=== PATIENT | male | born 1960 | race Caucasian/White ===

== ENCOUNTER 2017-09-09 12:36 | Emergency (ER) | payer SELFPAY ==
--- NOTE | 2017-09-09 13:13 | EDM.PDOC ---
ED HPI GENERAL MEDICAL PROBLEM - General Chief Complaint: Lower Extremity Injury/Pain Stated Complaint: INJURED RT FOOT Time Seen by Provider: 09/09/17 12:58 Source of Information: Reports: Patient History Limitations: Reports: No Limitations - History of Present Illness INITIAL COMMENTS - FREE TEXT/NARRATIVE: HISTORY AND PHYSICAL: History of present illness: [Patient comes to the emergency room complaining of right foot pain. States that yesterday afternoon he stepped out of his pickup with his right foot landing in a rat-tooth causing his foot to roll and pain. This occurred yesterday afternoon. He thought his symptoms may improve throughout the evening and he took one Aleve. Symptoms worsened overnight and into [facility] emergency room for evaluation of these complaints denies any medical history. Does not take any medications regularly. No previous surgery injury or trauma to affected area. He has no other complaints or concerns at this time.] Review of systems: As per history of present illness and below otherwise all systems reviewed and negative. Past medical history: As per history of present illness and as reviewed below otherwise noncontributory. Surgical history: As per history of present illness and as reviewed below otherwise noncontributory. Social history: No reported history of drug or alcohol abuse. Family history: As per history of present illness and as reviewed below otherwise noncontributory. Physical exam: HEENT: Atraumatic, normocephalic. Extremities: Dorsum of right foot is swollen and ecchymotic, and tender with palpation just proximal 3rd-5th toes. No pain with palpation over right ankle or lower leg. Atraumatic, negative for cords or calf pain. Neurovascular unremarkable. Neuro: Awake, alert, oriented. Cranial nerves II through XII unremarkable. Cerebellum unremarkable. Motor and sensory unremarkable throughout. Exam nonfocal. Diagnostics: [Right foot x-ray] Impression: [Right foot pain] Plan: [Discussed with patient that his foot x-ray shows no fracture or abnormality. Will treat as a muscle strain at this point. Recommend [id number] analgesics, rest, ice, elevation. Referral is given to local PCP to follow-up if he is worsening or failing to improve. Strict return precautions are reviewed with the patient. In agreement with today's plan. All questions are answered and concerns are addressed.] Definitive disposition and diagnosis as appropriate pending reevaluation and review of above. right foot Pain Score (Numeric/FACES): 8 - Related Data Allergies Allergy/AdvReac Type Severity Reaction Status Date / Time No Known Allergies Allergy Verified 09/09/17 12:48 Home Meds: Home Meds . [No Known Home Meds] 09/09/17 [History] Past Medical History HEENT History: Reports: None Cardiovascular History: Reports: None Respiratory History: Reports: None Gastrointestinal History: Reports: None Genitourinary History: Reports: None Musculoskeletal History: Reports: None Neurological History: Reports: None Psychiatric History: Reports: None Endocrine/Metabolic History: Reports: None Hematologic History: Reports: None Immunologic History: Reports: None Oncologic (Cancer) History: Reports: None Dermatologic History: Reports: None - Infectious Disease History Infectious Disease History: Reports: Chicken Pox, Measles, Mumps - Past Surgical History Head Surgeries/Procedures: Reports: None HEENT Surgical History: Reports: Tonsillectomy GI Surgical History: Reports: Colostomy Musculoskeletal Surgical History: Reports: Other (See Below) Other Musculoskeletal Surgeries/Procedures:: Ankle Sprain Social & Family History - Family History Family Medical History: Noncontributory - Tobacco Use Smoking Status *Q: Never Smoker - Caffeine Use Caffeine Use: Reports: Coffee - Recreational Drug Use Recreational Drug Use: No Review of Systems - Review of Systems Review Of Systems: ROS reveals no pertinent complaints other than HPI. ED EXAM, GENERAL - Physical Exam Exam: See Below Course - Vital Signs Last Recorded V/S: Last Vital Signs Temp 97.4 F 09/09/17 12:49 Pulse 83 09/09/17 12:49 Resp 18 09/09/17 12:49 BP 147/91 H 09/09/17 12:49 Pulse Ox 98 09/09/17 12:49 - Orders/Labs/Meds Orders: Active Orders 24 hr Category Date Time Status Foot 2V Rt [CR] Stat Exams 09/09/17 12:54 Taken Departure - Departure Time of Disposition: 13:55 Disposition: Home, Self-Care 01 Condition: Good Clinical Impression: Right foot pain - Discharge Information Referrals: PCP,Not In Area [Primary Care Provider] - Forms: ED Department Discharge Additional Instructions: The following information is given to patients seen in the emergency department who are being discharged to home. This information is to outline your options for follow-up care. We provide all patients seen in our emergency department with a follow-up referral. The need for follow-up, as well as the timing and circumstances, are variable depending upon the specifics of your emergency department visit. If you don't have a primary care physician on staff, we will provide you with a referral. We always advise you to contact your personal physician following an emergency department visit to inform them of the circumstance of the visit and for follow-up with them and/or the need for any referrals to a consulting specialist. The emergency department will also refer you to a specialist when appropriate. This referral assures that you have the opportunity for follow-up care with a specialist. All of these measure are taken in an effort to provide you with optimal care, which includes your follow-up. Under all circumstances we always encourage you to contact your private physician who remains a resource for coordinating your care. When calling for follow-up care, please make the office aware that this follow-up is from your recent emergency room visit. If for any reason you are refused follow-up, please contact the [facility] emergency department at and asked to speak to the emergency department charge nurse. [facility] [address] [place] [address] Establish care with a local primary care provider and follow-up there in the next 2-3 days. Rest, ice, elevation, [id number] pain reliever. Return to ER as needed as discussed. - My Orders Last 24 Hours: My Active Orders 09/09/17 12:54 Foot 2V Rt [CR] Stat - Assessment/Plan Last 24 Hours: My Active Orders 09/09/17 12:54 Foot 2V Rt [CR] Stat
--- NOTE | 2017-09-09 14:58 | CR ---
EXAM DATE: 09/09/17 PATIENT'S AGE: 57 Patient: SHERRELL DOWNS Facility: [place], [place] Site . Site : 1960 Study: XRay Extremity Right foot [id number] 1:29:55 PM Ordering Physician: Doctor Quach Final Report: Right foot. 2 VIEWS INDICATION: Pain. IMPRESSION: No visualized fracture. Alignments anatomic. Hallux valgus. Spurring of the anterior talus on the lateral view. Dictated by Paulo Irizarry MD @ Sep 09 2017 1:38PM (Electronic Signature) Report Signed by Proxy. ANUSHA
== END 2017-09-09 14:03 | disposition home or self-care (01) ==
LOC: MW.ED 12:36
DX: S90.31XA Contusion of right foot, initial encounter (principal); X50.9XXA Other and unspecified overexertion or strenuous movements or postures, initial encounter
CPT/HCPCS: 73620-26-RT; 73620-RT; 99282; 99283